=== PATIENT | female | born 1985 | race Caucasian/White ===

== ENCOUNTER 2016-07-05 12:52 | Emergency (ER) | payer MEDICAID ==
[2016-07-05 12:56] VITALS: RESP 18; TEMP 97.7; O2SAT 98
[2016-07-05] MEDS ORDERED: diphenhydrAMINE 25 MG CAP PO ONE (13:29)
[2016-07-05] MEDS ORDERED: FAMOTIDINE 20 MG TAB PO ONE (13:30)
[2016-07-05] MEDS ORDERED: predniSONE 20 MG TAB PO ONE (13:30)
--- NOTE | 2016-07-05 13:41 | EDPHY ---
H & P Time Seen by Provider: 07/05/16 13:14 HPI/ROS: CHIEF COMPLAINT: bee sting right 3rd finger HISTORY OF PRESENT ILLNESS: 31-year-old female presents to the emergency department by private vehicle after she was stung by a bee in her right 3rd finger. The patient states that she was at work on her lunch break and she was pumping gas and got stung by which she thinks was a bee. Incident happened approximately 1 hour ago. No treatment prior to coming to the emergency department. The patient states that she otherwise feels fine now. She denies difficulty breathing or swallowing. Denies hives. Denies vomiting. 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 She denies dysphagia, difficulty breathing or chest pain. Denies rash. Denies itching. Denies any facial swelling. She denies retained stinger. She denies any other symptoms in her right hand. She believes her tetanus shot is current. REVIEW OF SYSTEMS: Constitutional: No fever, no chills. Eyes: No double or blurry vision. ENT: No sore throat. Respiratory: No cough, no shortness of breath. Cardiac: No chest pain. Gastrointestinal: No abdominal pain, vomiting or diarrhea. Genitourinary: No dysuria. Musculoskeletal: No neck or back pain. Skin: No rashes. Neurological: No headache. 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 127/83, heart rate 90, 98% on room air. Eyes: Pupils equal and round. Extraocular motions are all intact. ENT: Mouth: Mucous membranes moist. No uvular swelling. No muffled voice. Respiratory: No wheezing, rhonchi, or rales, lungs are clear to auscultation. Cardiovascular: Regular rate and rhythm. Gastrointestinal: Abdomen is soft and nontender, no masses, no rebound or guarding, bowel sounds normal. Neurological: Alert and oriented x 3, cranial nerves II through XII grossly intact Skin: Lateral aspect of the right 3rd finger reveals no evidence of retained foreign body. No redness or warmth. Full range of motion of her right upper extremities. Warm and dry, no rashes. No hives. Musculoskeletal: Nontender to palpate along the cervical, thoracic or lumbar spine. Neck is supple. Extremities: Full range of motion and no peripheral edema. Psychiatric: Patient is oriented X 3, there is no agitation. Constitutional: Initial Vital Signs Temperature (C) 36.5 C 07/05/16 12:53 Heart Rate 90 07/05/16 12:53 Respiratory Rate 18 07/05/16 12:53 Blood Pressure 127/83 H 07/05/16 12:53 O2 Sat (%) 98 07/05/16 12:53 O2 Delivery Mode Room Air Allergies/Adverse Reactions: BEES/WASPS Allergy (Severe, Uncoded 01/31/15 10:20) Other-Enter Comments Home Medications: Medication Instructions Recorded Citalopram 10/30/14 predniSONE 1 dose PO DAILY #18 tablet 01/31/15 EPINEPHRINE [EPIPEN] 0.3 mg IM ONCE #2 syr 07/05/16 predniSONE 60 mg PO DAILY 3 Days 07/05/16 Medical Decision Making ED Course/Re-evaluation: 31-year-old female presents to the emergency department after she was stung by a bee approximately 1 hour prior to arrival. The patient has a history of anaphylactic reactions after being stung by a bee with delayed response, 2 hours. The patient was given oral Benadryl, oral Pepcid, and oral prednisone. She was observed for over 2 hours in the emergency department did not have any symptoms of dysphagia, rash, shortness of breath. She felt comfortable being discharged home. She was given a refill of her EpiPen since these have since . Differential Diagnosis: Including but not limited to acute anaphylactic reaction, allergic reaction, retained foreign body, cellulitis - Data Points Medications Given: Discontinued Medications Diphenhydramine HCl (Benadryl) 50 mg PO EDNOW ONE Stop: 07/05/16 13:30 Last Admin: 07/05/16 14:07 Dose: 50 mg Famotidine (Pepcid) 20 mg PO EDNOW ONE Stop: 07/05/16 13:31 Last Admin: 07/05/16 14:07 Dose: 20 mg Prednisone (Prednisone) 60 mg PO EDNOW ONE Stop: 07/05/16 13:31 Last Admin: 07/05/16 14:07 Dose: 60 mg Departure - Departure Disposition: Home, Routine, Self-Care Clinical Impression: Bee sting Qualifiers: Encounter type: initial encounter Injury intent: accidental or unintentional Qualified Code(s): T63.441A - Toxic effect of venom of bees, accidental ( unintentional), initial encounter Condition: Good Instructions: Insect Bite or Sting (ED) Additional Instructions: Pepcid 20 mg daily for the next few days. Benadryl 50mg every 6 hours for itching. Prednisone daily for 3 days. Epi Pen as directed if needed. Return if you feel shortness of breath, rash, difficulty swallowing, or if you feel worse in any way. Referrals: Reginaldo Elizabeth MD [Primary Care Provider] - As per Instructions Prescriptions: EPINEPHRINE [EPIPEN] 0.3 mg IM ONCE #2 syr predniSONE 60 mg PO DAILY 3 Days
[2016-07-05 15:29] VITALS: BP 109/81; PULSE 85
== END 2016-07-05 15:29 | disposition home or self-care (01) ==
DX: T63.441A Toxic effect of venom of bees, accidental (unintentional), initial encounter (principal); F17.200 Nicotine dependence, unspecified, uncomplicated; X58.XXXA Exposure to other specified factors, initial encounter

== ENCOUNTER 2016-08-03 15:48 | Emergency (ER) | payer MEDICAID ==
--- NOTE | 2016-08-03 16:13 | EDPHY ---
H & P Time Seen by Provider: 08/03/16 16:03 HPI/ROS: CHIEF COMPLAINT: Abdominal pain HISTORY OF PRESENT ILLNESS: The patient is a 31 year old female with history of endometriosis, who presents with intermittent abdominal pain over the past 5 days. The patient started her period 3 days ago and attributed her pain to that. However, pain is more severe than usual menstrual cramps. She reports diffuse abdominal pain that radiates around to her back. The pain is a stabbing sensation that feels like "labor contractions". She has associated nausea, no vomiting. Over the past few days she's been having loose stools. She denies urinary complaints or fever. REVIEW OF SYSTEMS: A comprehensive 10 point review of systems is otherwise negative aside from elements mentioned in the history of present illness. Past Medical/Surgical History: Appendectomy, Endometriosis. Social History: Lives in [place]. Smoking Status: Former smoker Physical Exam: General Appearance: Patient appears in pain, she is crying as I enter the room Eyes: Pupils equal and round, no conjunctival pallor or injection ENT, Mouth: Mucous membranes moist Neck: Normal inspection Respiratory: Lungs are clear to auscultation Cardiovascular: Regular rate and rhythm Gastrointestinal: Abdomen is soft, suprapubic tenderness Neurological: A&O, nonfocal, normal gait Skin: Warm and dry, no rash Extremities: Nontender, no pedal edema Psychiatric: Mood and affect normal Constitutional: Initial Vital Signs Temperature (C) 36.7 C 08/03/16 15:51 Heart Rate 89 08/03/16 15:51 Respiratory Rate 18 08/03/16 15:51 Blood Pressure 118/92 H 08/03/16 15:51 O2 Sat (%) 98 08/03/16 15:51 O2 Delivery Mode Room Air Allergies/Adverse Reactions: BEES/WASPS Allergy (Severe, Uncoded 01/31/15 10:20) Other-Enter Comments Home Medications: Medication Instructions Recorded Hydrocodone/APAP 5/325 [Bigfoot 1 - 2 tab PO Q4H PRN #10 tab 08/03/16 5/325] Ondansetron Odt [Zofran Odt 4 mg 4 mg PO Q4 PRN #6 tab 08/03/16 (*)] Medical Decision Making - Diagnostics Imaging: Study: CT of the abdomen/pelvis. Indication: abdominal pain. Results: Negative. The study was read by the radiologist, Dr. Hathaway. I viewed the images myself on the PACS system. ED Course/Re-evaluation: Labs and UA were ordered. Plan to check CT abdomen/pelvis becaue of severity of pain. IV was established, patient received 30mg Toradol IV and 1L normal saline. CT results d/w pt. Pain possibly secondary to endometriosis, given onset of sx, crampy nature, and normal CT. 6:00 p.m.: I reevaluated the patient, she is feeling better. Abd exam benign. Plan to discharge home. F/u invoice checker and PCP. Differential Diagnosis: Differential diagnosis includes though it is not limited to appendicitis, cholecystitis, diverticulitis, pyelonephritis, bowel perforation, small bowel obstruction. - Data Points Laboratory Results: Laboratory Results 08/03/16 16:41 08/03/16 16:41 Medications Given: Discontinued Medications Sodium Chloride (Ns) 1,000 mls @ 0 mls/hr IV ONCE ONE PRN Reason: Wide Open Stop: 08/03/16 16:16 Last Admin: 08/03/16 17:05 Dose: 1,000 mls Ketorolac Tromethamine (Toradol) 30 mg IVP EDNOW ONE Stop: 08/03/16 16:16 Last Admin: 08/03/16 17:04 Dose: 30 mg Departure - Departure Disposition: Home, Routine, Self-Care Clinical Impression: Abdominal pain Qualifiers: Abdominal location: generalized Qualified Code(s): R10.84 - Generalized abdominal pain Condition: Good Instructions: Abdominal Pain (ED) Additional Instructions: Take 600mg Ibuprofen every 6-8 hours as needed for pain. Clear liquid and bland diet for next 24 hours. Take Zofran as directed for nausea. Take Vicodin as directed for severe pain. Followup with your primary care physician tomorrow if you continue to have symptoms. Referrals: Reginaldo Elizabeth MD [Medical Doctor] - As per Instructions Prescriptions: Hydrocodone/APAP 5/325 [Bigfoot 5/325] 1 - 2 tab PO Q4H PRN #10 tab PRN Reason: Pain, Moderate Ondansetron Odt [Zofran Odt 4 mg (*)] 4 mg PO Q4 PRN #6 tab PRN Reason: Nausea Report Scribed for: Aleksandra Gomez Report Scribed by: Kaia Downing of Report: 08/03/16 Time of Report: 16:13 Physician Review and Approval Statement: 08/03/16 16:13 Portions of this note were transcribed by a medical center representative. I personally performed the history, physical exam, and medical decision-making; and confirmed the accuracy of the information in the transcribed note.
[2016-08-03] MEDS ORDERED: NS 1,000 ML IV ONE (16:15)
[2016-08-03] MEDS ORDERED: KETOROLAC 30 MG/1 ML SDV IVP ONE (16:15)
[2016-08-03 17:02] LABS: % IMMATURE GRANULYOCYTES 0.5 % (0.0-1.1); ABSOLUTE IMMATURE GRANULOCYTES 0.04 10^3/uL (0.00-0.10); ADD DIFF? NO; ADD MORPH? NO; ADD SCAN? NO; ATYPICAL LYMPHOCYTE FLAG 10 (0-99); FRAGMENT RBC FLAG 0 (0-99); HEMATOCRIT 44.8 % (38.0-47.0); HEMOGLOBIN 15.5 g/dL (12.6-16.3); LEFT SHIFT FLG 0 (0-99); LIPEMIA HEMOLYSIS FLAG 90 (0-99); MEAN CELL HEMOGLOBIN 33.8 pg (27.9-34.1); MEAN CELL HEMOGLOBIN CONCENTR. 34.6 g/dL (32.4-36.7); MEAN CELL VOLUME 97.6 fL (81.5-99.8); MEAN PLATELET VOLUME 12.1 fL (8.7-11.7); PLATELET CLUMPS FLAG 50 (0-99); PLATELET COUNT 224 10^3/uL (150-400); RED BLOOD CELL COUNT 4.59 10^6/uL (4.18-5.33); RED CELL DISTRIBUTION WIDTH 12.1 % (11.5-15.2)
[2016-08-03 17:29] LABS: ALANINE AMINOTRANSFERASE 23 IU/L (9-52); ALBUMIN 4.8 g/dL (3.5-5.0); ALKALINE PHOSPHATASE 51 IU/L (38-126); ANION GAP 13 mEq/L (8-16); ASPARTATE AMINOTRANSFERASE 30 IU/L (14-46); BILIRUBIN-CONJUGATED 0.6 mg/dL (0.0-0.5); BILIRUBIN-UNCONJUGATED 0.4 mg/dL (0.0-1.1); CALCIUM 10.1 mg/dL (8.5-10.4); CARBON DIOXIDE 23 mEq/l (22-31); CHLORIDE 103 mEq/L (97-110); CREATININE 0.7 mg/dL (0.6-1.0); GLOMERULAR FILTRATION RATE > 60; GLUCOSE 83 mg/dL (70-100); POTASSIUM 4.1 mEq/L (3.5-5.2); SODIUM 139 mEq/L (134-144); TOTAL PROTEIN 7.7 g/dL (6.3-8.2)
[2016-08-03 18:29] VITALS: BP 107/62; PULSE 72; RESP 16; TEMP 98.4; O2SAT 95
== END 2016-08-03 18:27 | disposition home or self-care (01) ==
DX: R10.84 Generalized abdominal pain (principal); Z87.891 Personal history of nicotine dependence
CPT/HCPCS: 96374; J1885